=== PATIENT | female | born 1985 | race Caucasian/White ===

== ENCOUNTER 2019-09-19 12:35 | Emergency (ER) | payer MEDICAID, SELFPAY ==
--- NOTE | 2019-09-19 12:51 | XR_ITS ---
PROCEDURE: XR ANKLE RT MIN 3V CLINICAL INDICATION: pain Posttraumatic pain and swelling COMPARISON: No exams were available for comparison FINDINGS: Soft tissue swelling is present at the lateral malleolar region. No acute fracture or dislocation is evident. Ankle mortise is well preserved. IMPRESSION: Soft tissue swelling laterally otherwise negative Dictated by: Pool Galvez MD 09/19/2019 14:21 Electronically signed by Pool Galvez MD in [place] 09/19/2019 14:21
--- NOTE | 2019-09-19 12:56 | PC.NURSE ---
Pt to rad.
[2019-09-19 13:00] VITALS: BP 126/83; PULSE 93; RESP 16; TEMP 36.9; O2SAT 100; BMI 28.5
--- NOTE | 2019-09-19 13:06 | [facility].EDLOEX ---
ED Disposition Clinical Impression: Ankle sprain and strain Disposition: Home, Self-Care Condition on Discharge: Good Instructions: DI for Ankle Sprain Additional Instructions: Remain touchdown weightbearing only on the right lower extremity until follow-up with orthopedic surgery. Referrals: Veronica Valentin MD [Physician] - 3 days - Critical Care Critical Care Time: No Attestation: On 09/19/19, the high probability of a clinically significant, sudden or life threatening deterioration of the following system(s) required my full and direct attention, intervention and personal management. The time I documented below is in addition to time spent performing reported procedures but includes the following listed in this critical care notation. Medical Decision Making - Medical Records Medical records reviewed: Yes: I reviewed the patient's medical records. - Jono Inquiry Pt receiving controlled substance: No Vital Signs: 09/19/19 13:00 Temperature 98.5 F Temperature Source Oral Pulse Rate [Right Radial] 93 H Respiratory Rate 16 Blood Pressure [Right Arm] 126/83 Blood Pressure Mean [Right Arm] 97 Blood Pressure Source [Right Arm] Automatic Cuff Blood Pressure Position [Right Arm] Sitting 02 Sat by Pulse Oximetry 100 Oxygen Delivery Method Room Air Orders (Tests/Meds): ORDERS Category Date Time Status XR ankle RT min 3V Stat Exams 09/19/19 12:51 Taken - Radiology Data #1 Image(s): Ankle Image Reviewed: Yes I reviewed the patient's radiology image Preliminary Findings: No Fracture Seen No fracture or dislocation. Medical Decision Narrative: Patient likely with ankle sprain. X-ray shows no fracture or dislocation. I discussed these images and case with Dr. Delacruz who will follow-up in clinic. She recommended boot, crutches which has been given. I discussed RICE. Of note, 1 of the views, the lateral view, looks like there is potentially some subluxation of the foot anteriorly, however this is an oblique view an Dr. Delacruz, said we could proceed as planned with immobilization, crutches and follow-up in clinic for weightbearing views. Lower Extremity Injury HPI - General Stated Complaint: ao wisted R ankle Time Seen by Provider: 09/19/19 13:06 Source of Information: Patient Limitations: No Limitations - History of Present Illness HPI Narrative: This is a 34-year-old female who presents to the emergency department for evaluation of right ankle pain. She states that she twisted her ankle yesterday morning and has been hobbling ever since. She states that the pain is worse with ambulation and movement. She has not tried any medication. Pain is global around the ankle. - Related Data Home Medications Medication Instructions Recorded Confirmed No Known Home Medications 10/15/18 09/19/19 Allergies Allergy/AdvReac Type Severity Reaction Status Date / Time No Known Allergies Allergy Unverified 04/15/17 14:11 [facility] History - Hepatitis A Screen Attestation statement:: This patient has been screened for Hepatitis A risk factors. I have reviewed the patient's past medical history: Yes ROS Obtained: Yes All systems reviewed & no additional complaints Physical Exam - General General appearance: alert, in no apparent distress - Head Head exam: atraumatic, normocephalic, normal inspection - Neck Neck exam: Present: normal inspection, trachea midline - Respiratory Respiratory exam: Absent: respiratory distress - Cardiovascular Cardiovascular exam: Present: regular rate - Expanded Lower Extremity Exam Right Ankle exam: Present: other (Ankle is swollen with tenderness along the medial and lateral malleolus. 2+ DP and PT pulses. Sensation grossly intact distally. 5/5 EHL and FHL. She does have some flexion and extension intact at the ankle but has limited range of motion secondary to pain) - Neurological Exam Neurological exam: Pre
--- NOTE | 2019-09-19 14:04 | PC.NURSE ---
Dr Haider speaking with Dr Valentin.
[2019-09-19 15:00] VITALS: BP 126/83; PULSE 93; RESP 16; TEMP 36.9; O2SAT 100
== END 2019-09-19 15:00 | disposition home or self-care (01) ==
PROVIDERS: Emergency Provider Emergency Medicine; PCP Pediatrics
DX: S93.401A Sprain of unspecified ligament of right ankle, initial encounter (principal); X50.1XXA Overexertion from prolonged static or awkward postures, initial encounter; Y92.019 Unspecified place in single-family (private) house as the place of occurrence of the external cause
CPT/HCPCS: 29515; 73610; 99283

== ENCOUNTER 2024-06-30 12:34 | Inpatient (IN) | payer MEDICAID, SELFPAY ==
[2024-06-30] VITALS (12 sets, daily range): BP systolic 114–166; BP diastolic 67–103; PULSE 74–115; RESP 18; TEMP 36.4–39.3; O2SAT 96–99; BMI 52.5; BMI 50.1
--- NOTE | 2024-06-30 13:03 | ED_ITS ---
<Statement entered by Tessa Casas DO - 06/30/24 23:40> I was consulted by the MORAIMA, and we discussed the complexity of the problems being addressed. I approved the treatment and management plan for this patient's care in the emergency department, thus performing a substantive portion of the medical decision making. Tessa Casas DO Discharge Plan Disposition Patient Disposition: Admitted Condition: Good Clinical Impressions Clinical Impression: Sepsis without septic shock, Abscess of female pelvis Discharge ED Provider: Heladio Albert General Adult HPI <GILBERT Willard - Last Filed: 06/30/24 22:00> General Chief complaint: Abdominal Pain Stated complaint: lower abd pain Time Seen by Provider: 06/30/24 13:03 Mode of Arrival: Ambulatory Source of Information: Patient Description of Symptoms (Recalled from ER Triage Doc. by RN): Pt presents with c/o left sided abdominal pain. Pt states she has had vomiting and diarrhea. Pt states she has had a decreased appeite. History of Present Illness HPI narrative: Patient reports a week of bilateral lower quadrant abdominal pain over the past week. She reports vomiting and diarrhea along with nausea but denies chest pain shortness of breath fever chills hemoptysis hematochezia melena nausea vomiting diarrhea. Pain does not radiate. She is able to have bowel movements and passed flatus. Related Data Home Medications ?Medication ?Instructions ?Recorded ?Confirmed No Known Home Medications 10/15/18 06/30/24 Allergies Allergy/AdvReac Type Severity Reaction Status Date / Time No Known Allergies Allergy Verified 03/15/24 14:46 PFSH <GILBERT Willard - Last Filed: 06/30/24 22:00> [facility] Disclaimer: The information contained in this section may have been updated after the patient was seen, as this information can be updated by other users. Medical History (Updated 06/30/24 @ 20:14 by Candida Johnston DO) Hypokalemia No significant past medical history No significant past medical history Family History (Updated 06/30/24 @ 18:52 by Whitney Hull, TIEN) Other No significant family history Social History (Updated 06/30/24 @ 18:52 by Whitney Hull, TIEN) Smoking Status: Never smoker alcohol intake: never current occupational status: other Travel in the last 8 weeks: None Have you lived/traveled outside [place] in past 30 days?: No Contact w/someone who lives/traveled outside US past 30 days?: No Exposure to someone with infectious disease in past 14 days?: No Do you have a fever (greater than 100.4 F or 38 C)?: No Have you tested positive for COVID-19: No Exposed to someone with COVID-19 in past 14 days?: No Do you have a sore throat?: No Do you have a cough?: No Do you have any weakness?: No Are you experiencing any nausea/vomitting?: No Do you have any diarrhea?: No Are you experiencing any unusual bleeding?: No Do you have any muscle aches/pain?: No Do you have any abdominal pain?: Yes Are you experiencing loss of taste or smell?: No Other Medical History Have you received the Flu Vaccine for this season: No Have you received the Pneumonia Vaccine: No <GILBERT Willard - Last Filed: 06/30/24 22:00> ROS Obtained: Yes Systems reviewed as appropriate & no additional complaints except as documented Physical Exam <GILBERT Willard - Last Filed: 06/30/24 22:00> General General appearance: alert and in no apparent distress Respiratory Respiratory exam: Present normal lung sounds bilaterally Cardiovascular Cardiovascular exam: Present tachycardia Neurological Exam Neurological exam: Present alert and oriented X3 Medical Decision Making <GILBERT Willard - Last Filed: 06/30/24 22:00> Medical Records Medical records reviewed: Yes I reviewed the patient's medical records. Screening: Per USPSTF and CDC recommendations, given the prevalence of disease in our region, it is our hospital?s policy to screen for HIV and viral Hepatitis for all patients aged 18 and over and those with ongoing risk factors. Jono Inquiry Pt receiving controlled substance: No Vital Signs: 06/30/24 12:53 06/30/24 14:18 06/30/24 14:31 Temperature 98 F Temperature Source Oral Pulse Rate 115 H 109 H Pulse Rate [Right] 100 H Respiratory Rate 18 Blood Pressure 134/81 160/103 H Blood Pressure [Right Arm] 166/90 H Blood Pressure Mean [Right Arm] 115 Blood Pressure Source [Right Arm] Automatic Cuff Blood Pressure Position [Right Arm] Sitting 02 Sat by Pulse Oximetry 99 98 97 Oxygen Delivery Method Room Air Room Air Room Air 06/30/24 15:01 06/30/24 16:00 06/30/24 16:31 Temperature Temperature Source Pulse Rate 109 H 92 H 89 Pulse Rate [Right] Respiratory Rate Blood Pressure 128/88 127/81 137/69 Blood Pressure [Right Arm] Blood Pressure Mean [Right Arm] Blood Pressure Source [Right Arm] Blood Pressure Position [Right Arm] 02 Sat by Pulse Oximetry 98 98 96 Oxygen Delivery Method Room Air Room Air Room Air 06/30/24 17:01 06/30/24 17:30 06/30/24 18:01 Temperature Temperature Source Pulse Rate 92 H 79 74 Pulse Rate [Right] Respiratory Rate Blood Pressure 124/79 114/74 121/82 Blood Pressure [Right Arm] Blood Pressure Mean [Right Arm] Blood Pressure Source [Right Arm] Blood Pressure Position [Right Arm] 02 Sat by Pulse Oximetry 98 96 99 Oxygen Delivery Method Room Air Room Air Room Air 06/30/24 18:33 06/30/24 18:37 Temperature 97.6 F 98 F Temperature Source Oral Pulse Rate 74 Pulse Rate [Right] 85 Respiratory Rate 18 18 Blood Pressure 121/82 Blood Pressure [Right Arm] 137/67 Blood Pressure Mean [Right Arm] 90 Blood Pressure Source [Right Arm] Automatic Cuff Blood Pressure Position [Right Arm] Supine 02 Sat by Pulse Oximetry 98 Oxygen Delivery Method Room Air Room Air Lab Data Lab results reviewed: Yes I reviewed the patient's lab results. Lab Results 06/30/24 13:05: Urine Color Emmons, Urine Appearance Sl cloudy, Urine pH 6.0, Ur Specific [place] 1.025, Urine Protein 2+ A, Urine Glucose (UA) Negative, Urine Ketones Trace, Urine Blood 3+ A, Urine Nitrate Negative, Urine Bilirubin 1+ A, Urine Urobilinogen 1.0, Ur Leukocyte Esterase 2+ A, Urine RBC Tntc, Urine WBC 10-20, Ur Squamous Epith Cells Occasional, Urine Bacteria Trace, Urine HCG, Qual Negative 06/30/24 13:35: WBC 20.7 H*, RBC 4.55, Hgb 11.7 L, Hct 36.4 L, MCV 80.0 L, MCH 25.7 L, MCHC 32.1, RDW 15.4, Plt Count 705 H, MPV 10.4, Neut % (Auto) 78.5, Lymph % (Auto) 11.4, [place] % (Auto) 7.9, Eos % (Auto) 0.1, Baso % (Auto) 0.5, N eut # (Auto) 16.2 H, Lymph # (Auto) 2.4, [place] # (Auto) 1.6 H, Eos # (Auto) 0.0, Baso # (Auto) 0.1, Total Counted 100, Neutrophils % (Manual) 79 H, Lymphocytes % (Manual) 15, Monocytes % (Manual) 6, Platelet Estimate Moderate increase, RBC Morphology Normal, Sodium 137, Potassium 3.2 L, Chloride 97 L, Carbon Dioxide 30, Anion Gap 13.2, BUN 4 L, Creatinine 0.80, Estimated Creat Clear 69, Estimated GFR 81, Est GFR ( Amer) 98, Glucose 139 H, Calcium 8.8, Total Bilirubin 0.4, AST 30, ALT 29, Alkaline Phosphatase 188 H, Total Protein 8.5 H, Albumin 4.1, Globulin 4.4 H, Albumin/Globulin Ratio 0.9 L, Lipase 30, P rocalcitonin 3.77 H 06/30/24 14:10: Lactate 1.1 06/30/24 13:35 06/30/24 13:35 Orders (Tests/Meds): ED MEDICATIONS Generic Name Dose Route Start Last Admin Trade Name Freq PRN Reason Stop Dose Admin Acetaminophen 650 mg 06/30/24 20:03 Acetaminophen 325mg Tab PO 07/30/24 20:02 Q4HP PRN Fever or Mild Pain (1-3) Doxycycline Hyclate 100 mg 06/30/24 20:15 06/30/24 20:47 Doxycycline Hycl 100 Mg Tablet PO 07/10/24 20:14 100 mg Q12H ANA Administration Hydromorphone HCl 2 mg 06/30/24 20:03 Hydromorphone 2mg/Ml Syringe IV 07/30/24 20:02 Q4HP PRN Severe Pain (7-10) Lactated Ringer's 1,000 mls @ 50 mls/hr 06/30/24 20:15 06/30/24 21:25 Lactated Ringer's 1000 Ml Bag IV 07/30/24 20:14 Not Given .Q20H ANA Ceftriaxone Sodium 1 gm/ 50 mls @ 100 mls/hr 06/30/24 20:15 06/30/24 20:48 Sodium Chloride IV 07/10/24 20:14 100 mls/hr Q24H ANA Administration Ketorolac Tromethamine 30 mg 06/30/24 20:03 Ketorolac 30mg/Ml Vial IV 07/05/24 20:02 Q6HP PRN Moderate Pain (4-6) Metronidazole 500 mg 06/30/24 20:15 06/30/24 20:48 Metronidazole 500 Mg Tablet PO 07/10/24 20:14 500 mg Q12H ANA Administration Ondansetron HCl 4 mg 06/30/24 20:03 Ondansetron 4mg/2ml Vial IV 07/30/24 20:02 Q8HP PRN Nausea Potassium Chloride 40 meq 06/30/24 20:15 06/30/24 20:47 Potassium Chloride 20meq Tab PO 07/02/24 09:01 40 meq DAILY ANA Administration Promethazine HCl 25 mg 06/30/24 20:03 Promethazine Hcl 25mg/Ml 1ml Vial IV 07/30/24 20:02 Q6HP PRN Nausea And Vomiting Sodium Chloride 10 ml 06/30/24 20:03 Sodium Chloride 0.9% 10ml Flush Syringe IV 07/30/24 20:02 NEEDED PRN Maintain IV Site Sodium Chloride 25 ml 06/30/24 20:03 Sodium Chloride 0.9% 25ml Bag IV 07/30/24 20:02 NEEDED PRN for Use with IV Promethazine Discontinued Medications Generic Name Dose Route Start Last Admin Trade Name Freq PRN Reason Stop Dose Admin Acetaminophen 1,000 mg 06/30/24 13:06 06/30/24 13:33 Acetaminophen 1,000mg/100ml Vial IV 06/30/24 13:07 1,000 mg ONCE ONE Administration Hydromorphone HCl 0.5 mg 06/30/24 14:43 06/30/24 16:37 Hydromorphone 2mg/Ml Syringe IV 06/30/24 14:44 0.5 mg ONCE ONE Administration Sodium Chloride 1,000 mls @ 999 mls/hr 06/30/24 13:06 06/30/24 13:33 Sod Chlor 0.9% 1000ml Bag IV 06/30/24 14:06 999 mls/hr .Q1H1M ONE Administration Sodium Chloride 1,370 mls @ 685 mls/hr 06/30/24 13:59 06/30/24 14:06 Sod Chlor 0.9% 1000ml Bag 30 ml/kg infuse over 2 hr (1370 ml) 06/30/24 15:58 685 mls/hr IV Administration .Q2H ONE Piperacillin Sod/Tazobactam 50 mls @ 100 mls/hr 06/30/24 14:09 06/30/24 15:39 Sod 3.375 gm/ Sodium Chloride IV 06/30/24 14:38 100 mls/hr ONCE ONE Administration Lactated Ringer's 1,000 mls @ 50 mls/hr 06/30/24 18:15 06/30/24 18:45 Lactated Ringer's 1000 Ml Bag IV 07/30/24 18:14 50 mls/hr .Q20H ANA Administration Iopamidol 75 ml 06/30/24 13:59 06/30/24 14:01 Iopamidol-370 (76%);100ml Bottle IV 06/30/24 14:00 75 ml ONCE ONE Administration Ketorolac Tromethamine 15 mg 06/30/24 13:06 06/30/24 13:34 Ketorolac 30mg/Ml Vial IV 06/30/24 13:07 15 mg ONCE ONE Administration Ondansetron HCl 4 mg 06/30/24 13:06 06/30/24 13:34 Ondansetron 4mg/2ml Vial IV 06/30/24 13:07 4 mg ONCE ONE Administration Sodium Chloride 10 ml 06/30/24 13:59 06/30/24 14:01 Sodium Chloride 0.9% 10ml Syr (Rad Only) IV 06/30/24 14:00 10 ml ONCE ONE Administration ORDERS Category Date Time Status CT abdomen pelvis w con Stat Cat Scan 06/30/24 13:06 Completed US transvaginal Stat Exams 06/30/24 14:43 Completed CBC w/Auto Diff [Complete Blood Count Auto Diff] Stat Lab 06/30/24 13:35 Completed CMP [Comprehensive Metabolic Panel] Stat Lab 06/30/24 13:35 Completed Lactic Acid Stat Lab 06/30/24 14:10 Completed Lipase Stat Lab 06/30/24 13:35 Completed Procalcitonin Stat Lab 06/30/24 13:35 Completed UA [Urinalysis and Microscopic] Stat Lab 06/30/24 13:05 Completed Urine , HCG Qual. Stat Lab 06/30/24 13:05 Completed Blood Culture Stat Micro 06/30/24 14:11 Received Urine Culture Stat Micro 06/30/24 13:05 Received Tissue Perfus/Sepsis Re-Eval Sepsis Re-Evaluation Performed: Yes Date Performed: 06/30/24 Time Performed: 14:10 Medical Decision Narrative: In summary patient is a 39-year-old female who presents to the emergency department for evaluation of nominal pain. Patient is initially normotensive 166/90 pulse 100 with sinus tachycardia the bedside monitor breathing 18 times a minute satting at 99% room air upon arrival, afebrile at 98. Zickel exam is remarkable for moderate abdominal tenderness in the bilateral lower quadrants without rebound or guarding or rigidity or focal tenderness. Bowel sounds hyperactive.. Differential diagnosis includes gastroenteritis versus colitis versus urinary tract infection versus appendicitis versus diverticulitis etc. Initial workup will be conducted with hematologic labs CT scan abdomen pelvis. Initial interventions include crystalloid bolus Toradol Tylenol Zofran. Initial workup reviewed by me shows her white count is 20.7 hemoglobin hematocrit 11.7 and 36.4 respectively with an absolute neutrophil count of 16.2 potassium is 3.2 chloride 97 BUN of 4 creatinine of 0.80 glucose 139, alk phos 188 and a procalcitonin of 3.77 and a lipase of 30. Urinalysis showed 2+ protein 3+ blood nitrite negative 2+ leukocyte Estrace scopic exam showed too numerous to count red cells 10-20 white cells occasional squamous epithelial cells and trace bacteria beta-hCG was negative. My informal interpretation of her CT scan abdomen pelvis showed stranding and inflammation around and a right adnexal solid and cystic mass additionally showed a malpositioned IUD without free air or abscess noted with some free fluid in the pelvis. At that point I ordered a sepsis bolus ordered blood cultures then started the patient on Zosyn. I had interactive discussion with IRON WORKER APPRENTICE on-call who requested a transvaginal ultrasound to rule out ovarian torsion. After the transvaginal ultrasound was performed WIRELESS NETWORK ENGINEER was recontacted and we discussed patient management. There did appear to be flow to the ovary on the right however tubo-ovarian abscess versus neoplasm remains in the differential. They felt that the complexity of the patient and services available require transfer to a higher level of care. I then had an interactive discussion with Dr. Herrera of GynOnc at the [facility] about patient presentation RUGGIERO and patient management. Dr. Lelo Carmona has accepted the patient however the the [facility] and the plan is to waitlist her if we are comfortable and patient is stable when a bed becomes available. I recontacted Dr. Johnston of IRON WORKER APPRENTICE here who agreed to admission. Subsequently patient has been admitted for further evaluation and care pending transfer to the [facility]. Heladio Albert MD: I was consulted by the MORAIMA, and we discussed the complexity of the problems being addressed. I approved the treatment and management plan for this patient's care in the emergency department, thus performing a substantive portion of the medical decision making. I agree with initial workup and imaging patient has a right adnexal mass, leukocytosis has gotten sepsis bolus fluids and is undergoing appropriate transvaginal ultrasound to determine ultimate disposition which is pending at time of transfer of care to the oncoming physician, Dr. aCsas. <Heladio Albert MD - Last Filed: 06/30/24 15:08> Vital Signs: 06/30/24 12:53 06/30/24 14:18 06/30/24 14:31 Temperature 98 F Temperature Source Oral Pulse Rate 115 H 109 H Pulse Rate [Right] 100 H Respiratory Rate 18 Blood Pressure 134/81 160/103 H Blood Pressure [Right Arm] 166/90 H Blood Pressure Mean [Right Arm] 115 Blood Pressure Source [Right Arm] Automatic Cuff Blood Pressure Position [Right Arm] Sitting 02 Sat by Pulse Oximetry 99 98 97 Oxygen Delivery Method Room Air Room Air Room Air 06/30/24 15:01 06/30/24 16:00 06/30/24 16:31 Temperature Temperature Source Pulse Rate 109 H 92 H 89 Pulse Rate [Right] Respiratory Rate Blood Pressure 128/88 127/81 137/69 Blood Pressure [Right Arm] Blood Pressure Mean [Right Arm] Blood Pressure Source [Right Arm] Blood Pressure Position [Right Arm] 02 Sat by Pulse Oximetry 98 98 96 Oxygen Delivery Method Room Air Room Air Room Air 06/30/24 17:01 06/30/24 17:30 06/30/24 18:01 Temperature Temperature Source Pulse Rate 92 H 79 74 Pulse Rate [Right] Respiratory Rate Blood Pressure 124/79 114/74 121/82 Blood Pressure [Right Arm] Blood Pressure Mean [Right Arm] Blood Pressure Source [Right Arm] Blood Pressure Position [Right Arm] 02 Sat by Pulse Oximetry 98 96 99 Oxygen Delivery Method Room Air Room Air Room Air 06/30/24 18:33 06/30/24 18:37 Temperature 97.6 F 98 F Temperature Source Oral Pulse Rate 74 Pulse Rate [Right] 85 Respiratory Rate 18 18 Blood Pressure 121/82 Blood Pressure [Right Arm] 137/67 Blood Pressure Mean [Right Arm] 90 Blood Pressure Source [Right Arm] Automatic Cuff Blood Pressure Position [Right Arm] Supine 02 Sat by Pulse Oximetry 98 Oxygen Delivery Method Room Air Room Air Lab Data Lab Results 06/30/24 13:05: Urine Color [place], Urine Appearance Sl cloudy, Urine pH 6.0, Ur Specific [place] 1.025, Urine Protein 2+ A, Urine Glucose (UA) Negative, Urine Ketones Trace, Urine Blood 3+ A, Urine Nitrate Negative, Urine Bilirubin 1+ A, Urine Urobilinogen 1.0, Ur Leukocyte Esterase 2+ A, Urine RBC Tntc, Urine WBC 10-20, Ur Squamous Epith Cells Occasional, Urine Bacteria Trace, Urine HCG, Qual Negative 06/30/24 13:35: WBC 20.7 H*, RBC 4.55, Hgb 11.7 L, Hct 36.4 L, MCV 80.0 L, MCH 25.7 L, MCHC 32.1, RDW 15.4, Plt Count 705 H, MPV 10.4, Neut % (Auto) 78.5, Lymph % (Auto) 11.4, [place] % (Auto) 7.9, Eos % (Auto) 0.1, Baso % (Auto) 0.5, N eut # (Auto) 16.2 H, Lymph # (Auto) 2.4, [place] # (Auto) 1.6 H, Eos # (Auto) 0.0, Baso # (Auto) 0.1, Total Counted 100, Neutrophils % (Manual) 79 H, Lymphocytes % (Manual) 15, Monocytes % (Manual) 6, Platelet Estimate Moderate increase, RBC Morphology Normal, Sodium 137, Potassium 3.2 L, Chloride 97 L, Carbon Dioxide 30, Anion Gap 13.2, BUN 4 L, Creatinine 0.80, Estimated Creat Clear 69, Estimated GFR 81, Est GFR ( Amer) 98, Glucose 139 H, Calcium 8.8, Total Bilirubin 0.4, AST 30, ALT 29, Alkaline Phosphatase 188 H, Total Protein 8.5 H, Albumin 4.1, Globulin 4.4 H, Albumin/Globulin Ratio 0.9 L, Lipase 30, P rocalcitonin 3.77 H 06/30/24 14:10: Lactate 1.1 Orders (Tests/Meds): ED MEDICATIONS Generic Name Dose Route Start Last Admin Trade Name Freq PRN Reason Stop Dose Admin Acetaminophen 650 mg 06/30/24 20:03 Acetaminophen 325mg Tab PO 07/30/24 20:02 Q4HP PRN Fever or Mild Pain (1-3) Doxycycline Hyclate 100 mg 06/30/24 20:15 06/30/24 20:47 Doxycycline Hycl 100 Mg Tablet PO 07/10/24 20:14 100 mg Q12H ANA Administration Hydromorphone HCl 2 mg 06/30/24 20:03 Hydromorphone 2mg/Ml Syringe IV 07/30/24 20:02 Q4HP PRN Severe Pain (7-10) Lactated Ringer's 1,000 mls @ 50 mls/hr 06/30/24 20:15 06/30/24 21:25 Lactated Ringer's 1000 Ml Bag IV 07/30/24 20:14 Not Given .Q20H ANA Ceftriaxone Sodium 1 gm/ 50 mls @ 100 mls/hr 06/30/24 20:15 06/30/24 20:48 Sodium Chloride IV 07/10/24 20:14 100 mls/hr Q24H ANA Administration Ketorolac Tromethamine 30 mg 06/30/24 20:03 Ketorolac 30mg/Ml Vial IV 07/05/24 20:02 Q6HP PRN Moderate Pain (4-6) Metronidazole 500 mg 06/30/24 20:15 06/30/24 20:48 Metronidazole 500 Mg Tablet PO 07/10/24 20:14 500 mg Q12H ANA Administration Ondansetron HCl 4 mg 06/30/24 20:03 Ondansetron 4mg/2ml Vial IV 07/30/24 20:02 Q8HP PRN Nausea Potassium Chloride 40 meq 06/30/24 20:15 06/30/24 20:47 Potassium Chloride 20meq Tab PO 07/02/24 09:01 40 meq DAILY ANA Administration Promethazine HCl 25 mg 06/30/24 20:03 Promethazine Hcl 25mg/Ml 1ml Vial IV 07/30/24 20:02 Q6HP PRN Nausea And Vomiting Sodium Chloride 10 ml 06/30/24 20:03 Sodium Chloride 0.9% 10ml Flush Syringe IV 07/30/24 20:02 NEEDED PRN Maintain IV Site Sodium Chloride 25 ml 06/30/24 20:03 Sodium Chloride 0.9% 25ml Bag IV 07/30/24 20:02 NEEDED PRN for Use with IV Promethazine Discontinued Medications Generic Name Dose Route Start Last Admin Trade Name Freq PRN Reason Stop Dose Admin Acetaminophen 1,000 mg 06/30/24 13:06 06/30/24 13:33 Acetaminophen 1,000mg/100ml Vial IV 06/30/24 13:07 1,000 mg ONCE ONE Administration Hydromorphone HCl 0.5 mg 06/30/24 14:43 06/30/24 16:37 Hydromorphone 2mg/Ml Syringe IV 06/30/24 14:44 0.5 mg ONCE ONE Administration Sodium Chloride 1,000 mls @ 999 mls/hr 06/30/24 13:06 06/30/24 13:33 Sod Chlor 0.9% 1000ml Bag IV 06/30/24 14:06 999 mls/hr .Q1H1M ONE Administration Sodium Chloride 1,370 mls @ 685 mls/hr 06/30/24 13:59 06/30/24 14:06 Sod Chlor 0.9% 1000ml Bag 30 ml/kg infuse over 2 hr (1370 ml) 06/30/24 15:58 685 mls/hr IV Administration .Q2H ONE Piperacillin Sod/Tazobactam 50 mls @ 100 mls/hr 06/30/24 14:09 06/30/24 15:39 Sod 3.375 gm/ Sodium Chloride IV 06/30/24 14:38 100 mls/hr ONCE ONE Administration Lactated Ringer's 1,000 mls @ 50 mls/hr 06/30/24 18:15 06/30/24 18:45 Lactated Ringer's 1000 Ml Bag IV 07/30/24 18:14 50 mls/hr .Q20H ANA Administration Iopamidol 75 ml 06/30/24 13:59 06/30/24 14:01 Iopamidol-370 (76%);100ml Bottle IV 06/30/24 14:00 75 ml ONCE ONE Administration Ketorolac Tromethamine 15 mg 06/30/24 13:06 06/30/24 13:34 Ketorolac 30mg/Ml Vial IV 06/30/24 13:07 15 mg ONCE ONE Administration Ondansetron HCl 4 mg 06/30/24 13:06 06/30/24 13:34 Ondansetron 4mg/2ml Vial IV 06/30/24 13:07 4 mg ONCE ONE Administration Sodium Chloride 10 ml 06/30/24 13:59 06/30/24 14:01 Sodium Chloride 0.9% 10ml Syr (Rad Only) IV 06/30/24 14:00 10 ml ONCE ONE Administration ORDERS Category Date Time Status CT abdomen pelvis w con Stat Cat Scan 06/30/24 13:06 Completed US transvaginal Stat Exams 06/30/24 14:43 Completed CBC w/Auto Diff [Complete Blood Count Auto Diff] Stat Lab 06/30/24 13:35 Completed CMP [Comprehensive Metabolic Panel] Stat Lab 06/30/24 13:35 Completed Lactic Acid Stat Lab 06/30/24 14:10 Completed Lipase Stat Lab 06/30/24 13:35 Completed Procalcitonin Stat Lab 06/30/24 13:35 Completed UA [Urinalysis and Microscopic] Stat Lab 06/30/24 13:05 Completed Urine , HCG Qual. Stat Lab 06/30/24 13:05 Completed Blood Culture Stat Micro 06/30/24 14:11 Received Urine Culture Stat Micro 06/30/24 13:05 Received Medical Decision Narrative: Heladio Albert MD: I was consulted by the MORAIMA, and we discussed the complexity of the problems being addressed. I approved the treatment and management plan for this patient's care in the emergency department, thus performing a substantive portion of the medical decision making. I agree with initial workup and imaging patient has a right adnexal mass, leukocytosis has gotten sepsis bolus fluids and is undergoing appropriate transvaginal ultrasound to determine ultimate disposition which is pending at time of transfer of care to the oncoming physician, Dr. Casas. Critical Care <Heladio Albert MD - Last Filed: 06/30/24 15:08> Critical Care Time Critical Care Time: No
--- NOTE | 2024-06-30 13:06 | CT_ITS ---
FINAL REPORT TECHNIQUE: After the administration of intravenous contrast, axial images were obtained through the abdomen and pelvis by computed tomography. This study was performed with technique to keep radiation doses as low as reasonably achievable, (ALARA). Individualized dose reduction techniques using automated exposure control or adjustment of the MA and/or KV according to the patient's size were employed. CLINICAL HISTORY: Abdominal pain for a week lower abdomen FINDINGS: Abdomen: The lung bases are clear. The liver is normal in size and attenuation. The spleen and gallbladder are unremarkable. The adrenals are normal. The pancreas is unremarkable. The kidneys enhance appropriately. The aorta is normal in caliber.. Pelvis: The appendix is not identified. There is mild retroperitoneal adenopathy throughout the peritoneum. Largest precaval lymph node measures 11 mm and is seen on image 60 below the liver of the renal vasculature. There is a complex cystic/solid right adnexal mass, likely of ovarian origin measuring 7.7 x 6.7 x 6.8 cm. There is significant surrounding stranding which represent neoplasm with surrounding tumor infiltration or tubo-ovarian abscess with surrounding inflammation or less likely, ovarian torsion. Findings likely account for mild retroperitoneal adenopathy. The left ovary is normal. There is a malpositioned IUD within the lower uterine segment and cervical canal. There is trace pelvic free fluid. Mild wall thickening is seen of the adjacent sigmoid colon likely related to secondary inflammation. There are mildly enlarged right external iliac lymph nodes measuring up to 11 mm. IMPRESSION: 1. Right adnexal mass measuring up to 7.7 cm with surrounding inflammation/infiltration. Differential diagnosis includes neoplasm, tubo-ovarian abscess or torsion. Recommend PASSENGER CAR UPHOLSTERER APPRENTICE consultation. Mild retroperitoneal and right inguinal adenopathy which may be reactive or neoplastic. Reviewed, Interpreted and Dictated by Alon Okeefe MD Transcribed by Zoraida Thomas Authenticated and [facility]
[2024-06-30 13:11] LABS: Microscopic, Urine URINE MICROSCOPIC (MICROSCOPIC)
[2024-06-30] MEDS: 0.9 % SODIUM CHLORIDE 1000ML 1,000 ML 999 ML IV (13:33)
[2024-06-30] MEDS: ACETAMINOPHEN 1,000MG/100ML VIAL 1000 MG IV (13:33)
[2024-06-30] MEDS: KETOROLAC 30MG/ML VIAL 15 MG IV (13:34)
[2024-06-30] MEDS: ONDANSETRON 4MG/2ML VIAL 4 MG IV (13:34)
[2024-06-30 13:37] LABS: Urine Pregnancy, HCG Qual. Negative (Negative)
[2024-06-30 13:45] LABS: Appearance,Urine SL CLOUDY (Clear); Blood, Urine 3+ (Negative); Color,Urine ORANGE (Yellow); Glucose,Urine (UA) Negative (Negative); Ketones,Urine TRACE (Negative); Leukocyte Esterase,Urine 2+ (Negative); Nitrate,Urine Negative (Negative); Protein,Urine 2+ (Negative); Specific Gravity, Urine 1.025 (1.005-1.030)
[2024-06-30 13:46] LABS: Bilirubin,Urine 1+ (Negative)
[2024-06-30 13:53] LABS: Basophils # 0.1 K/mm3 (0-0.2); Basophils % 0.5 % (0.1-2.0); Eosinophils % 0.1 % (0.1-12.0); Hematocrit 36.4 % (37.0-47.0); Hemoglobin 11.7 g/dL (12.2-16.2); Lymphocytes # 2.4 K/mm3 (0.7-4.5); Lymphocytes % 11.4 % (10-50); Mean Corpuscular HGB Conc 32.1 g/dL (31.8-35.4); Mean Corpuscular Hemoglobin 25.7 pg (27.0-31.2); Mean Platelet Volume 10.4 fl (7.4-10.4); Monocytes # 1.6 K/mm3 (0.1-1.0); Monocytes % 7.9 % (1.7-9.3); Neutrophils # 16.2 K/mm3 (1.8-7.8); Neutrophils % 78.5 % (37.0-80.0); Platelet Count 705 K/mm3 (142-424); Red Blood Count 4.55 M/mm3 (4.20-5.40); Red Cell Distribution Width 15.4 % (11.5-17.5); White Blood Count 20.7 K/mm3 (4.8-10.8)
[2024-06-30 13:57] LABS: MANUAL DIFFERENTIAL MANUAL DIFFERENTIAL (MANUAL DIFF)
[2024-06-30] MEDS: IOPAMIDOL-370 (76%);100ML BOTTLE 75 ML IV (14:01)
[2024-06-30] MEDS: SODIUM CHLORIDE 0.9% 10ML SYR (RAD ONLY) 10 ML IV (14:01)
[2024-06-30 14:04] LABS: RBC,Urine TNTC #/hpf (0-3); Squamous Epithelial Cell,Urine Occasional #/hpf (0-5)
[2024-06-30 14:05] LABS: Bacteria,Urine Trace /lpf
[2024-06-30] MEDS: 0.9 % SODIUM CHLORIDE 1000ML 1,370 ML 685 ML IV (14:06)
[2024-06-30 14:09] LABS: Alanine Aminotransferase 29 U/L (12-78); Albumin Level 4.1 g/dl (3.5-5.0); Albumin/Globulin Ratio 0.9 (1.1-1.8); Alkaline Phosphatase 188 U/L (38-126); Anion Gap 13.2 mEq/L (5-15); Aspartate Amino Transferase 30 U/L (14-36); Bilirubin,Total 0.4 mg/dl (0.2-1.3); Blood Urea Nitrogen 4 mg/dl (7-17); Calcium 8.8 mg/dl (8.4-10.2); Carbon Dioxide 30 mmol/L (22.0-30.0); Chloride 97 mmol/L (98-107); Creatinine Clearance Estimated 69 mL/min (50-200); Estimated Glomerular Filt Rate 81 ml/min (>60); GFR (African American) 98 ML/MIN (>60); Globulin 4.4 g/dL (1.3-3.2); Glucose 139 mg/dl (74-100); Lipase 30 U/L (23-300); Potassium 3.2 mmoL/L (3.5-5.1); Sodium 137 mmol/L (136-145); Total Protein,Serum 8.5 g/dl (6.3-8.2)
[2024-06-30 14:15] LABS: Lymphocytes % 15 % (10-50); Monocytes % 6 % (2-9); Neutrophils % 79 % (42-76); Platelet Estimate Moderate Increase; RBC Morphology Normal; Total Cells Counted 100
--- NOTE | 2024-06-30 14:23 | PC.NURSE ---
I COLLECTED BOTH SETS OF BLOOD CULTURES AND BLUE BRACELET PLACED ON PT LEFT WRIST AT THIS TIME
[2024-06-30 14:26] LABS: Procalcitonin 3.77 ng/mL (0.0-2.0)
[2024-06-30 14:34] LABS: Lactic Acid 1.1 mmol/L (0.7-2.1)
--- NOTE | 2024-06-30 14:43 | US_ITS ---
PROCEDURE: US TRANSVAGINAL CLINICAL INDICATION: Complex right adnexal mass rule out torsion COMPARISON: CT CT ABDOMEN PELVIS W CON from 06/30/2024 FINDINGS: Transvaginal sonographic images of the pelvis were obtained. UTERUS: 8.7 cm x 6.8 cmx 4.2cm anteverted with a combined endometrial thickness of 11.4mm. There appears to be a complex nabothian cyst in the cervix that measures 1.2 cm in size. There is an IUD that appears to be in the upper cervix. LEFT OVARY: Not visualized. RIGHT OVARY: 1.7 cmx 2.4cmx1.6 cm with a volume of 3.3ml. There are several small follicles in the right ovary. Adjacent and inferior to the right ovary there is a complex mass that has hyperechoic areas thought to be inflammatory. This mass measures 7.7 cm x 7.3 cm x 6.2 cm. It is not clear whether this mass is part of the right ovary or adjacent to it. There is a 2nd complex mass seen in the cul-de-sac without peristalsis. It measures 2.7 cm in size. It appears to be adjacent to the primary complex mass. Doppler flow to right ovary is seen. There is moderate in the cul-de-sac. Likely inflammatory. IMPRESSION: 1. Anteverted uterus, bulky in size. The endometrium appears normal and measures 11.4 mm. 2. There is an IUD out of position in the upper cervix. 3. The left ovary is not visualized. 4. The right ovary is seen and appears normal. Adjacent to the right ovary there is a complex mass measuring up to 7.7 cm in size. Likely tubo-ovarian abscess but cannot rule out a neoplastic process. There is a 2nd smaller complex mass in the cul-de-sac adjacent to the primary mass that measures 2.7 cm in size. 5. Doppler flow is seen to the right ovary. 6. There is a moderate amount of clear fluid in the cul-de-sac likely inflammatory. 7. The findings were discussed with Dr. Austin in the ER. Dictated by: Ruben Carrasco MD 06/30/2024 16:25 Ruben Carrasco MD in OV 06/30/2024 16:25
--- NOTE | 2024-06-30 15:16 | PC.NURSE ---
Pt to CT
--- NOTE | 2024-06-30 15:34 | PC.NURSE ---
1411 Gamal HUNT notified of WBC of 20. A Grabiel [facility] currently drawing blood cultures on patient.
[2024-06-30] MEDS: PIPERCILLIN/TAZO 3.375 GM in 0.9 % SODIUM CHLORIDE 50 ML IV (15:39)
--- NOTE | 2024-06-30 16:06 | PC.NURSE ---
Roman Austin paged
--- NOTE | 2024-06-30 16:07 | PC.NURSE ---
Joe HUNT speaking with at this time.
--- NOTE | 2024-06-30 16:09 | PC.NURSE ---
Dr. Susie vaughan. Jonatan would like us to reach out to and .
--- NOTE | 2024-06-30 16:10 | PC.NURSE ---
Keyla requested radiology power share and make a disk.
[2024-06-30] MEDS: HYDROMORPHONE 2MG/ML SYRINGE 0.5 MG IV (16:37)
--- NOTE | 2024-06-30 16:37 | PC.NURSE ---
CALLING [facility] FOR FOR OBGYN SERVICES PER SERGIO(GILBERT) DUE TO PT HAVING RT COMPLEX MASS AND POSSIBLE PELVIC ABCESS, [facility] STATES THEY WILL CALL BACK ONCE PROVIDER IS ON THE LINE TO SPEAK WITH PA
--- NOTE | 2024-06-30 17:25 | PC.NURSE ---
GILBERT HILL SPEAKING WITH FRANKO AT
--- NOTE | 2024-06-30 17:52 | PC.NURSE ---
I notified HS that the pt will need a bed for admission to med/surg per
--- NOTE | 2024-06-30 18:08 | PC.NURSE ---
report called to rohit on second floor
--- NOTE | 2024-06-30 18:33 | PC.NURSE ---
arrived by w/c from ED
[2024-06-30] MEDS: LACTATED RINGERS 1000ML 1,000 ML 50 ML IV (18:45)
--- NOTE | 2024-06-30 19:54 | EXP.HP ---
History of Present Illness *Admission Date: 06/30/24 *Reason for visit:: Abdominal pain, nausea, vomiting, diarrhea *History of present illness: Ms Kathy Chandler is a 39 yo [id number] who presented to [facility] ED with complaint of abdominal pain, nausea, vomiting and diarrhea. She states about 1 week ago she started to have lower abdominal pain. She didn't think much of it because she was due to start her period. She has an IUD in place that was inserted about 9 years ago. She has always had regular, monthly periods with IUD. She started her period 06/25/24 but her abdominal pain did not improve. Pain is more tolerable during the day and gets worse at night. Pain has progressively increased over the past several days. She reports associated nausea, vomiting and diarrhea. She states she normally has daily BM and sometimes twice daily. However, when the pain started she became constipated. The constipation then turned to diarrhea. She reports about two BMs but her stool is liquid. She admits to chills at night. Her period stopped last night but returned again today more brown in color. 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 She hasn't had a pap smear since then. She admits she has not been sexually active in about 1 year. She denies past medical history. She quit smoking 3 months ago. History of x 3. [facility] Disclaimer: The information contained in this section may have been updated after the patient was seen, as this information can be updated by other users. Medical History (Updated 06/30/24 @ 20:14 by Candida Johnston DO) Hypokalemia No significant past medical history No significant past medical history Family History (Updated 06/30/24 @ 18:52 by Whitney Hull RN) Other No significant family history Social History (Updated 06/30/24 @ 18:52 by Whitney Hull RN) Smoking Status: Never smoker alcohol intake: never current occupational status: other Travel in the last 8 weeks: None Have you lived/traveled outside US in past 30 days?: No Contact w/someone who lives/traveled outside US past 30 days?: No Exposure to someone with infectious disease in past 14 days?: No Do you have a fever (greater than 100.4 F or 38 C)?: No Have you tested positive for COVID-19: No Exposed to someone with COVID-19 in past 14 days?: No Do you have a sore throat?: No Do you have a cough?: No Do you have any weakness?: No Are you experiencing any nausea/vomitting?: No Do you have any diarrhea?: No Are you experiencing any unusual bleeding?: No Do you have any muscle aches/pain?: No Do you have any abdominal pain?: Yes Are you experiencing loss of taste or smell?: No Other Medical History Have you received the Flu Vaccine for this season: No Have you received the Pneumonia Vaccine: No Review of Systems Review of Systems Review of systems:: pertinent systems reviewed and negative unless documented below Constitutional Constitutional: Reports chills (in the evenings) *Gastrointestinal Gastrointestinal: Reports abdominal pain, Reports loose stools, Reports nausea and Reports vomiting *Genitourinary Genitourinary: Reports pelvic pain Meds Home Medications and Allergies Home Medications ?Medication ?Instructions ?Recorded ?Confirmed ?Type No Known Home Medications 10/15/18 06/30/24 History New Prescriptions to Start Prescriptions: Allergies Allergy/AdvReac Type Severity Reaction Status Date / Time No Known Allergies Allergy Verified 03/15/24 14:46 Exam Data for Last 24 hours Vital signs and Labs for Last 24 Hours: Temp Pulse Resp BP Pulse Ox O2 Del Method 98 F 74 18 121/82 98 Room Air 06/30/24 18:37 06/30/24 18:37 06/30/24 18:37 06/30/24 18:37 06/30/24 18:33 06/30/24 18:37 Laboratory Results - last 24 hr 06/30/24 13:05: Urine Color [place], Urine Appearance Sl cloudy, Urine pH 6.0, Ur Specific [place] 1.025, Urine Protein 2+ A, Urine Glucose (UA) Negative, Urine Ketones Trace, Urine Blood 3+ A, Urine Nitrate Negative, Urine Bilirubin 1+ A, Urine Urobilinogen 1.0, Ur Leukocyte Esterase 2+ A, Urine RBC Tntc, Urine WBC 10-20, Ur Squamous Epith Cells Occasional, Urine Bacteria Trace, Urine HCG, Qual Negative 06/30/24 13:35: WBC 20.7 H*, RBC 4.55, Hgb 11.7 L, Hct 36.4 L, MCV 80.0 L, MCH 25.7 L, MCHC 32.1, RDW 15.4, Plt Count 705 H, MPV 10.4, Neut % (Auto) 78.5, Lymph % (Auto) 11.4, [place] % (Auto) 7.9, Eos % (Auto) 0.1, Baso % (Auto) 0.5, Neut # (Auto) 16.2 H, Lymph # (Auto) 2.4, [place] # (Auto) 1.6 H, Eos # (Auto) 0.0, Baso # (Auto) 0.1, Total Counted 100, Neutrophils % (Manual) 79 H, Lymphocytes % (Manual) 15, Monocytes % (Manual) 6, Platelet Estimate Moderate increase, RBC Morphology Normal, Sodium 137, Potassium 3.2 L, Chloride 97 L, Carbon Dioxide 30, Anion Gap 13.2, BUN 4 L, Creatinine 0.80, Estimated Creat Clear 69, Estimated GFR 81, Est GFR ( Amer) 98, Glucose 139 H, Calcium 8.8, Total Bilirubin 0.4, AST 30, ALT 29, Alkaline Phosphatase 188 H, Total Protein 8.5 H, Albumin 4.1, Globulin 4.4 H, Albumin/Globulin Ratio 0.9 L, Lipase 30, Procalcitonin 3.77 H 06/30/24 14:10: Lactate 1.1 I & O for Last 24 hours: Intake & Output 06/27/24 06/28/24 06/29/24 06/30/24 23:59 23:59 23:59 23:59 Weight 255 lb 1 oz Constitutional Constitutional: no acute distress and cooperative *Routine HEENT Exam Head: Present normocephalic and atraumatic Eye: Absent conjunctivae pink ENT: Present mucous membranes moist *Routine Neck Exam Neck: Present full ROM *Routine Respiratory Exam Respiratory: Present CTA bilaterally and normal respiratory effort *Routine Cardiovascular Exam Cardiovascular: Present RRR *Routine Abdominal Exam Abdominal: Present soft, normoactive bowel sounds, tenderness (mild RLQ tenderness to palpation and mild RLQ pain with LLQ palpation) and obese; Absent distended or guarding *Routine Rectal Exam Rectal:: deferred *Routine Genitalia Exam Genitalia:: normal female *Routine Extremities Exam Extremities: Present full ROM; Absent edema or calf tenderness *Routine Neurological Exam Neurological: Present alert, moving all extremities and normal speech Routine Psychiatric Exam Psychiatric: Present normal affect and cooperative Assessment and Plan *Assessment and plan (1) Sepsis without septic shock: Status: Acute Category: Medical Code(s): A41.9 - Sepsis, unspecified organism (2) Abscess of female pelvis: Status: Acute Category: Medical Code(s): N73.9 - Female pelvic inflammatory disease, unspecified (3) Hypokalemia: Status: Acute Category: Medical Code(s): E87.6 - Hypokalemia Plan Admit to med/surg Reviewed CT scan and pelvic ultrasound. Discussed findings with Kathy. All questions addressed and answered. Of note, IUD is in lower uterine segment. She has had this IUD in place for 9 years She received 1 dose of Zosyn while in the ED. Vaginal culture collected and sent Rocephin 1 gram IV q 24 hrs, Doxycycline 100mg PO q 12 hours and Metronidazole 500 mg PO q 12 hours ordered Blood cultures and urine cultures pending Klor-con 40 mEq PO daily ordered x 3 days SCDs for DVT prophylaxis IV fluids at 50 ml/hr. She received sepsis fluid resuscitation in the ED Regular diet as tolerated Pain medication ordered for mild, moderate and severe pain. She was comfortable during exam tonight. Zofran and promethazine ordered PRN Repeat CBC, CMP and procalcitonin in the AM Consider repeat CT scan in the next 48 hours
[2024-06-30] MEDS: POTASSIUM CHLORIDE 20MEQ TAB 40 MEQ PO (20:47)
[2024-06-30] MEDS: DOXYCYCLINE HYCL 100 MG TABLET PO (20:47)
[2024-06-30] MEDS: CEFTRIAXONE 1 GM 1 GM in 0.9 % SODIUM CHLORIDE 50 ML IV (20:48)
[2024-06-30] MEDS: metroNIDAZOLE 500 MG TABLET PO (20:48)
--- NOTE | 2024-06-30 22:09 | PC.NURSE ---
Addendum entered by Alondra Hubbard 06/30/24 22:14: Wrong chart Original Note: Patient arrived to floor via wheelchair from ED at 21:57.
[2024-06-30] MEDS: ACETAMINOPHEN 325MG TAB 650 MG PO (23:35)
--- NOTE | 2024-07-01 00:24 | PC.NURSE ---
Was informed that pt temperature was 102.8. Tylenol was provided. On recheck pt temp had come down to 98.6.
[2024-07-01 00:32] VITALS: TEMP 37
[2024-07-01 04:00] VITALS: BP 117/59; PULSE 93; RESP 16; TEMP 37.2; O2SAT 94; BMI 51.0
[2024-07-01 06:31] LABS: Basophils # 0.1 K/mm3 (0-0.2); Basophils % 0.4 % (0.1-2.0); Eosinophils # 0.1 K/mm3 (0.0-0.4); Eosinophils % 0.4 % (0.1-12.0); Hematocrit 29.8 % (37.0-47.0); Lymphocytes # 2.4 K/mm3 (0.7-4.5); Mean Corpuscular HGB Conc 31.2 g/dL (31.8-35.4); Mean Corpuscular Hemoglobin 25.2 pg (27.0-31.2); Mean Corpuscular Volume 80.8 fl (81-99); Mean Platelet Volume 11.6 fl (7.4-10.4); Monocytes # 1.4 K/mm3 (0.1-1.0); Monocytes % 7.6 % (1.7-9.3); Neutrophils # 13.9 K/mm3 (1.8-7.8); Neutrophils % 76.8 % (37.0-80.0); Platelet Count 454 K/mm3 (142-424); Red Blood Count 3.69 M/mm3 (4.20-5.40); Red Cell Distribution Width 15.7 % (11.5-17.5); White Blood Count 18.2 K/mm3 (4.8-10.8)
[2024-07-01 06:35] LABS: MANUAL DIFFERENTIAL MANUAL DIFFERENTIAL (MANUAL DIFF)
[2024-07-01] MEDS: ONDANSETRON 4MG/2ML VIAL 4 MG IV (06:37)
[2024-07-01 06:51] LABS: Alanine Aminotransferase 23 U/L (12-78); Albumin Level 3.1 g/dl (3.5-5.0); Albumin/Globulin Ratio 0.9 (1.1-1.8); Alkaline Phosphatase 189 U/L (38-126); Anion Gap 11.6 mEq/L (5-15); Aspartate Amino Transferase 33 U/L (14-36); Bilirubin,Total 0.2 mg/dl (0.2-1.3); Blood Urea Nitrogen 4 mg/dl (7-17); Calcium 7.6 mg/dl (8.4-10.2); Carbon Dioxide 23 mmol/L (22.0-30.0); Chloride 104 mmol/L (98-107); Creatinine Clearance Estimated 75 mL/min (50-200); Estimated Glomerular Filt Rate 94 ml/min (>60); GFR (African American) 114 ML/MIN (>60); Globulin 3.3 g/dL (1.3-3.2); Glucose 98 mg/dl (74-100); Magnesium 2.1 mg/dl (1.6-2.3); Potassium 3.6 mmoL/L (3.5-5.1); Sodium 135 mmol/L (136-145); Total Protein,Serum 6.4 g/dl (6.3-8.2)
[2024-07-01 06:57] LABS: Hemoglobin 9.5 g/dL (12.2-16.2)
[2024-07-01 08:00] VITALS: BP 110/71; PULSE 99; RESP 18; TEMP 37.2; O2SAT 92
[2024-07-01 08:13] LABS: Hypochromasia 1+; Lymphocytes % 18 % (10-50); Monocytes % 3 % (2-9); Neutrophils % 79 % (42-76); Platelet Estimate Slight Increase; Total Cells Counted 100
[2024-07-01] MEDS: metroNIDAZOLE 500 MG TABLET PO ×2 (08:50→20:43)
[2024-07-01] MEDS: DOXYCYCLINE HYCL 100 MG TABLET PO ×2 (08:50→20:43)
[2024-07-01] MEDS: POTASSIUM CHLORIDE 20MEQ TAB 40 MEQ PO (08:50)
[2024-07-01 12:00] VITALS: BP 136/70; PULSE 78; RESP 20; TEMP 36.9; O2SAT 96
--- NOTE | 2024-07-01 12:05 | P.PN_ITS ---
Subjective *Date: 07/01/24 *Time: 16:52 Interval history: Kathy is hospital day #2, admitted for sepsis as a pelvic mass that is suspected origin. Patient's had an IUD in for greater than 8 years. Reports regular menses with this. She has not been sexually active in greater than a year. She has not required any pain medication. And she has remained afebrile. She continues to have a white count. Her vitals have remained stable. Exam Data for Last 24 hours Vital signs and Labs for Last 24 Hours: Temp Pulse Resp BP Pulse Ox O2 Del Method 99.0 F 99 H 18 110/71 92 L Room Air 07/01/24 08:00 07/01/24 08:00 07/01/24 08:00 07/01/24 08:00 07/01/24 08:00 07/01/24 11:00 Laboratory Results - last 24 hr 06/30/24 13:05: Urine Color [place], Urine Appearance Sl cloudy, Urine pH 6.0, Ur Specific [place] 1.025, Urine Protein 2+ A, Urine Glucose (UA) Negative, Urine Ketones Trace, Urine Blood 3+ A, Urine Nitrate Negative, Urine Bilirubin 1+ A, Urine Urobilinogen 1.0, Ur Leukocyte Esterase 2+ A, Urine RBC Tntc, Urine WBC 10-20, Ur Squamous Epith Cells Occasional, Urine Bacteria Trace, Urine HCG, Qual Negative 06/30/24 13:35: WBC 20.7 H*, RBC 4.55, Hgb 11.7 L, Hct 36.4 L, MCV 80.0 L, MCH 25.7 L, MCHC 32.1, RDW 15.4, Plt Count 705 H, MPV 10.4, Neut % (Auto) 78.5, Lymph % (Auto) 11.4, [place] % (Auto) 7.9, Eos % (Auto) 0.1, Baso % (Auto) 0.5, Neut # (Auto) 16.2 H, Lymph # (Auto) 2.4, [place] # (Auto) 1.6 H, Eos # (Auto) 0.0, Baso # (Auto) 0.1, Total Counted 100, Neutrophils % (Manual) 79 H, Lymphocytes % (Manual) 15, Monocytes % (Manual) 6, Platelet Estimate Moderate increase, RBC Morphology Normal, Sodium 137, Potassium 3.2 L, Chloride 97 L, Carbon Dioxide 30, Anion Gap 13.2, BUN 4 L, Creatinine 0.80, Estimated Creat Clear 69, Estimated GFR 81, Est GFR ( Amer) 98, Glucose 139 H, Calcium 8.8, Total Bilirubin 0.4, AST 30, ALT 29, Alkaline Phosphatase 188 H, Total Protein 8.5 H, Albumin 4.1, Globulin 4.4 H, Albumin/Globulin Ratio 0.9 L, Lipase 30, Procalcitonin 3.77 H 06/30/24 14:10: Lactate 1.1 07/01/24 05:23: WBC 18.2 H, RBC 3.69 L, Hgb 9.5 L D, Hct 29.8 L, MCV 80.8 L, MCH 25.2 L, MCHC 31.2 L, RDW 15.7, Plt Count 454 H D, MPV 11.6 H, Neut % (Auto) 76.8, Lymph % (Auto) 13.0, [place] % (Auto) 7.6, Eos % (Auto) 0.4, Baso % (Auto) 0.4, Neut # (Auto) 13.9 H, Lymph # (Auto) 2.4, [place] # (Auto) 1.4 H, Eos # (Auto) 0.1, Baso # (Auto) 0.1, Total Counted 100, Neutrophils % (Manual) 79 H, Lymphocytes % (Manual) 18, Monocytes % (Manual) 3, Platelet Estimate Slight increase, RBC Morphology Not Reportable, Hypochromasia 1+, Sodium 135 L, Potassium 3.6, Chloride 104, Carbon Dioxide 23, Anion Gap 11.6, BUN 4 L, Creatinine 0.70, Estimated Creat Clear 75, Estimated GFR 94, Est GFR ( Amer) 114, Glucose 98 D, Calcium 7.6 L, Magnesium 2.1, Total Bilirubin 0.2, AST 33, ALT 23, Alkaline Phosphatase 189 H, Total Protein 6.4, Albumin 3.1 L D, Globulin 3.3 H, Albumin/Globulin Ratio 0.9 L, Procalcitonin 2.60 H I & O for Last 24 hours: Intake & Output 06/28/24 06/29/24 06/30/24 07/01/24 23:59 23:59 23:59 23:59 Intake Total 1200 / 1200 Output Total 0 / 0 Balance 0 / 600 1200 / 1200 Weight 255 lb 1 oz 260 lb Constitutional Constitutional: no acute distress *Routine HEENT Exam Head: Present normocephalic Eye: Present EOMI and PERRL ENT: Present mucous membranes moist *Routine Neck Exam Neck: Present supple; Absent lymphadenopathy *Routine Respiratory Exam Respiratory: Present CTA bilaterally *Routine Cardiovascular Exam Cardiovascular: Present RRR *Routine Abdominal Exam Abdominal: Present soft and normoactive bowel sounds; Absent tenderness *Routine Exam Comments: Normal pelvic exam. Cervix examined and was noted to be without lesions or abnormalities. IUD removed. Speculum exam was very painful for the patient who has otherwise demonstrated a very high tolerance of pain *Routine Extremities Exam Extremities: Absent cyanosis, clubbing or edema *Routine Skin Exam Skin: Present warm; Absent rash *Routine Neurological Exam Neurological: Present alert and oriented X3 Assessment and Plan *Assessment and plan (1) Sepsis without septic shock: Status: Acute Category: Medical Code(s): A41.9 - Sepsis, unspecified organism (2) Abscess of female pelvis: Status: Acute Category: Medical Code(s): N73.9 - Female pelvic inflammatory disease, unspecified (3) Hypokalemia: Status: Acute Category: Medical Code(s): E87.6 - Hypokalemia Plan Patient was originally on a transfer list to . Clinically the patient is stable, appropriate, and improving. She is afebrile and without pain. Unlikely to need transfer. 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 Continue workup and evaluation for pelvic mass Continue trending CBC and CMP Replace electrolytes CA125, CA 19-9, and CEA ordered today IUD removed today Normal pelvic exam Pap smear collected today Continue antibiotics Awaiting blood, urine, and vaginal cultures Continue SCDs Vitals have remained stable with IV fluid resuscitation Tolerating regular diet without nausea and vomiting Has not required any pain medication Consider repeat CT scan Friday or Friday
--- NOTE | 2024-07-01 13:34 | PC.NURSE ---
[facility] called for update on pt. stated that there was still no bed at this time
[2024-07-01 16:00] VITALS: BP 146/66; PULSE 96; RESP 18; TEMP 36.9; O2SAT 97
--- NOTE | 2024-07-01 17:16 | PC.NURSE ---
PT HAS DONE WELL THIS SHIFT. NO C/O PAIN, NAUSEA OR VOMITING. VSS. REMAINS ON WAIT LIST AT . 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 PT ENDORSED DISCOMFORT DURING EXAM BUT IS CURRENTLY RESTING COMFORTABLY
[2024-07-01 19:49] VITALS: BP 114/67; PULSE 91; RESP 16; TEMP 37.1; O2SAT 100
[2024-07-01] MEDS: CEFTRIAXONE 1 GM 1 GM in 0.9 % SODIUM CHLORIDE 50 ML IV (20:43)
[2024-07-01] MEDS: LACTATED RINGERS 1000ML 1,000 ML 50 ML IV (21:20)
[2024-07-02] VITALS: BP 126/56; PULSE 94; RESP 16; TEMP 37.5; O2SAT 96
[2024-07-02 04:00] VITALS: BP 101/52; PULSE 80; RESP 16; TEMP 37.2; O2SAT 95; BMI 51.0
--- NOTE | 2024-07-02 05:44 | PC.NURSE ---
patient is alert an oriented x4, ambulates to and from bathroom independently, no complaints of pain, no complaints of nausea or vomiting, [facility] called for an update and stated that they do not have a bed available at this time, call button is in reach
[2024-07-02 05:56] LABS: Basophils # 0.1 K/mm3 (0-0.2); Basophils % 0.5 % (0.1-2.0); Eosinophils # 0.2 K/mm3 (0.0-0.4); Eosinophils % 1.6 % (0.1-12.0); Hematocrit 29.4 % (37.0-47.0); Hemoglobin 9.4 g/dL (12.2-16.2); Lymphocytes # 2.7 K/mm3 (0.7-4.5); Lymphocytes % 23.7 % (10-50); Mean Corpuscular Hemoglobin 25.8 pg (27.0-31.2); Mean Corpuscular Volume 80.5 fl (81-99); Mean Platelet Volume 10.3 fl (7.4-10.4); Monocytes # 0.8 K/mm3 (0.1-1.0); Monocytes % 6.7 % (1.7-9.3); Neutrophils # 7.3 K/mm3 (1.8-7.8); Neutrophils % 62.6 % (37.0-80.0); Platelet Count 678 K/mm3 (142-424); Red Blood Count 3.65 M/mm3 (4.20-5.40); Red Cell Distribution Width 15.7 % (11.5-17.5); White Blood Count 11.6 K/mm3 (4.8-10.8)
[2024-07-02 06:10] LABS: Alanine Aminotransferase 19 U/L (12-78); Albumin Level 2.9 g/dl (3.5-5.0); Albumin/Globulin Ratio 0.9 (1.1-1.8); Alkaline Phosphatase 131 U/L (38-126); Anion Gap 9.2 mEq/L (5-15); Aspartate Amino Transferase 20 U/L (14-36); Blood Urea Nitrogen 3 mg/dl (7-17); Calcium 8.1 mg/dl (8.4-10.2); Carbon Dioxide 25 mmol/L (22.0-30.0); Chloride 107 mmol/L (98-107); Creatinine Clearance Estimated 75 mL/min (50-200); Estimated Glomerular Filt Rate 94 ml/min (>60); GFR (African American) 114 ML/MIN (>60); Globulin 3.3 g/dL (1.3-3.2); Glucose 102 mg/dl (74-100); Potassium 3.2 mmoL/L (3.5-5.1); Sodium 138 mmol/L (136-145); Total Protein,Serum 6.2 g/dl (6.3-8.2)
[2024-07-02 07:22] LABS: Bilirubin,Total < 0.1 mg/dl (0.2-1.3)
[2024-07-02 08:00] VITALS: BP 125/68; PULSE 87; RESP 18; TEMP 36.9; O2SAT 96
[2024-07-02] MEDS: metroNIDAZOLE 500 MG TABLET PO ×2 (09:17→19:28)
[2024-07-02] MEDS: DOXYCYCLINE HYCL 100 MG TABLET PO ×2 (09:17→19:28)
[2024-07-02] MEDS: POTASSIUM CHLORIDE 20MEQ TAB 40 MEQ PO (09:17)
--- NOTE | 2024-07-02 10:38 | P.PN_ITS ---
Subjective *Date: 07/02/24 *Time: 10:38 Interval history: She seems to be doing much better this morning. She denies any pain. She denies any fever, shortness of breath or chest pain. She denies any calf tenderness. Her white blood cell count has gone down to 11.5 this morning. Her hemoglobin is stable at 9.4. She continues to be slightly hypokalemic at 3.2. She continues with her Rocephin and doxycycline. Medical Exam Vital signs and Labs for Last 24 Hours: Vital Signs Temp Pulse Resp BP Pulse Ox O2 Del Method 07/02/24 09:15 Room Air 07/02/24 08:05 Room Air 07/02/24 08:00 98.5 F 87 18 125/68 96 Room Air 07/02/24 05:00 Room Air 07/02/24 04:00 98.9 F 80 16 101/52 L 95 Room Air 07/02/24 03:00 Room Air 07/02/24 01:00 Room Air 07/02/24 00:00 99.5 F 94 H 16 126/56 L 96 Room Air 07/01/24 23:00 Room Air 07/01/24 21:00 Room Air 07/01/24 20:00 Room Air 07/01/24 19:49 98.7 F 91 H 16 114/67 100 Room Air 07/01/24 18:48 Room Air 07/01/24 17:00 Room Air 07/01/24 16:00 98.4 F 96 H 18 146/66 H 97 Room Air 07/01/24 15:00 Room Air 07/01/24 13:00 Room Air 07/01/24 12:00 98.4 F 78 20 136/70 96 Room Air 07/01/24 11:00 Room Air Intake and Output 07/01/24 07/02/24 07/02/24 19:59 03:59 11:59 Intake Total 780 / 3078 590 / 3078 1708 / 3078 Output Total 0 / 0 0 / 0 0 / 0 Balance 780 / 3078 590 / 3078 1708 / 3078 Intake: Intake, Oral Amount 780 / 1300 240 / 1300 280 / 1300 Intake, Total IV Amount 350 / 1778 1428 / 1778 Ceftriaxone 1 gm 1 gm In 0.9 % 50 / 50 Sodium Chloride 50 ml @ 100 mls /hr IV Q24H [facility] Rx#:[id number] Lactated Ringers 1000ML 1,000 300 / 1728 1428 / 1728 ml @ 50 mls/hr IV .Q20H [facility] Rx# :[id number] Output: Output, Urine Amount 0 / 0 0 / 0 0 / 0 Other: Number of Unmeasured Voids 2 1 Number of Bowel Movements 1 1 Weight 259 lb 15.505 oz Patient Weight 07/02/24 11:59 Weight 259 lb 15.505 oz Laboratory Results - last 24 hr 07/02/24 05:20: WBC 11.6 H D, RBC 3.65 L, Hgb 9.4 L, Hct 29.4 L, MCV 80.5 L, MCH 25.8 L, MCHC 32.0, RDW 15.7, Plt Count 678 H D, MPV 10.3, Neut % (Auto) 62.6, Lymph % (Auto) 23.7, [place] % (Auto) 6.7, Eos % (Auto) 1.6, Baso % (Auto) 0.5, Neut # (Auto) 7.3, Lymph # (Auto) 2.7, [place] # (Auto) 0.8, Eos # (Auto) 0.2, Baso # (Auto) 0.1, Sodium 138, Potassium 3.2 L, Chloride 107, Carbon Dioxide 25, Anion Gap 9.2, BUN 3 L, Creatinine 0.70, Estimated Creat Clear 75, Estimated GFR 94, Est GFR ( Amer) 114, Glucose 102 H, Calcium 8.1 L, Total Bilirubin < 0.1 L, AST 20 D, ALT 19, Alkaline Phosphatase 131 H, Total Protein 6.2 L, Albumin 2.9 L, Globulin 3.3 H, Albumin/Globulin Ratio 0.9 L I & O for Labs for Last 24 Hours: Intake & Output 06/29/24 06/30/24 07/01/24 07/02/24 11:59 11:59 11:59 11:59 Intake Total 1200 / 1200 3078 / 3078 Output Total 0 / 0 0 / 0 Balance 1200 / 1200 3078 / 3078 Weight 260 lb 259 lb 15.505 oz Microbiology Reports for the Last 24 Hours: Microbiology 06/30/24 14:11 Blood Blood Culture - Preliminary NO GROWTH AFTER 24 HOURS 06/30/24 14:10 Blood Blood Culture - Preliminary NO GROWTH AFTER 24 HOURS Head: Present normocephalic Neck: Present normal inspection Respiratory: Present normal respiratory effort; Absent accessory muscle use GI: Present soft; Absent tenderness, guarding, rebound or rigidity Rectal (female): Present deferred (female): Present deferred Extremities: Present normal inspection Assessment and Plan *Assessment and plan (1) Hypokalemia: Status: Acute Category: Medical Code(s): E87.6 - Hypokalemia (2) Abscess of female pelvis: Status: Acute Category: Medical Code(s): N73.9 - Female pelvic inflammatory disease, unspecified (3) Sepsis without septic shock: Status: Acute Category: Medical Code(s): A41.9 - Sepsis, unspecified organism Plan She seems to be improving on a daily basis. She denies any fever or chills, she denies any shortness of breath or chest pain. Her belly pain has now completely resolved. She has had her IUD removed. At this point in time we will continue with her antibiotics and consider sending her home in 24?48 hours. We will see how she is doing tomorrow.
[2024-07-02 11:25] VITALS: BMI 51.0
[2024-07-02 11:53] VITALS: BP 117/63; PULSE 75; RESP 16; TEMP 36.9; O2SAT 95
[2024-07-02] MEDS: LACTATED RINGERS 1000ML 1,000 ML 50 ML IV (12:48)
[2024-07-02 15:46] VITALS: BP 146/79; PULSE 85; RESP 18; TEMP 36.9; O2SAT 97
--- NOTE | 2024-07-02 18:11 | PC.NURSE ---
Pt alert and oriented. VSS. ON room air. Up ad stephanie to BR for voids and BM. Denies pain. Antibiotics and IV fluids administered per orders. Monitor for 24-48 hours with possible discharge home
[2024-07-02] MEDS: CEFTRIAXONE 1 GM 1 GM in 0.9 % SODIUM CHLORIDE 50 ML IV (19:28)
[2024-07-02 20:00] VITALS: BP 125/53; PULSE 96; RESP 16; TEMP 37.1; O2SAT 94
[2024-07-03] VITALS: BP 106/65; PULSE 92; RESP 16; TEMP 37.3; O2SAT 95
[2024-07-03] MEDS: LACTATED RINGERS 1000ML 1,000 ML 50 ML IV (01:33)
[2024-07-03 04:00] VITALS: BP 116/71; PULSE 87; TEMP 37.2; O2SAT 94; BMI 51.0
--- NOTE | 2024-07-03 05:23 | PC.NURSE ---
Pt is alert and oriented x4 and tolerating RA well at this time. Pt has slept well this shift and has tolerated fluid and antibiotic therapy well this shift. Pt has had no acute changes to note and denies pain and needs
[2024-07-03 08:00] VITALS: BP 129/59; PULSE 88; RESP 18; TEMP 37.3; O2SAT 96
[2024-07-03] MEDS: metroNIDAZOLE 500 MG TABLET PO (08:30)
[2024-07-03] MEDS: DOXYCYCLINE HYCL 100 MG TABLET PO (08:30)
[2024-07-03 09:02] LABS: Basophils # 0.1 K/mm3 (0-0.2); Basophils % 0.6 % (0.1-2.0); Eosinophils # 0.2 K/mm3 (0.0-0.4); Eosinophils % 1.8 % (0.1-12.0); Hematocrit 29.7 % (37.0-47.0); Hemoglobin 9.1 g/dL (12.2-16.2); Lymphocytes # 2.9 K/mm3 (0.7-4.5); Lymphocytes % 22.6 % (10-50); Mean Corpuscular HGB Conc 30.6 g/dL (31.8-35.4); Mean Corpuscular Hemoglobin 25.1 pg (27.0-31.2); Mean Platelet Volume 10.3 fl (7.4-10.4); Monocytes # 0.8 K/mm3 (0.1-1.0); Monocytes % 6.1 % (1.7-9.3); Neutrophils # 8.1 K/mm3 (1.8-7.8); Neutrophils % 64.3 % (37.0-80.0); Platelet Count 770 K/mm3 (142-424); Red Blood Count 3.62 M/mm3 (4.20-5.40); Red Cell Distribution Width 16.2 % (11.5-17.5); White Blood Count 12.6 K/mm3 (4.8-10.8)
[2024-07-03 09:09] LABS: Albumin Level 2.9 g/dl (3.5-5.0); Chloride 109 mmol/L (98-107); Potassium 3.8 mmoL/L (3.5-5.1); Sodium 140 mmol/L (136-145)
[2024-07-03 09:12] LABS: Alanine Aminotransferase 17 U/L (12-78); Albumin/Globulin Ratio 0.9 (1.1-1.8); Alkaline Phosphatase 116 U/L (38-126); Anion Gap 9.8 mEq/L (5-15); Aspartate Amino Transferase 23 U/L (14-36); Blood Urea Nitrogen 2 mg/dl (7-17); Calcium 8.3 mg/dl (8.4-10.2); Carbon Dioxide 25 mmol/L (22.0-30.0); Creatinine Clearance Estimated 75 mL/min (50-200); Estimated Glomerular Filt Rate 94 ml/min (>60); GFR (African American) 114 ML/MIN (>60); Globulin 3.2 g/dL (1.3-3.2); Glucose 95 mg/dl (74-100); Total Protein,Serum 6.1 g/dl (6.3-8.2)
[2024-07-03 09:14] LABS: CA 19-9 7 U/mL (0-35); CEA 0.8 ng/mL (0.0-4.7); Cancer Antigen (CA) 125 42.3 U/mL (0.0-38.1)
[2024-07-03 09:17] LABS: Bilirubin,Total < 0.1 mg/dl (0.2-1.3)
--- NOTE | 2024-07-03 09:27 | EXP.DC.SUM ---
General Admission date:: 06/30/24 Discharge date: 07/03/24 HPI HPI HPI: Ms Kathy Chandler is a 39 yo [id number] who presented to [facility] ED with complaint of abdominal pain, nausea, vomiting and diarrhea. She states about 1 week ago she started to have lower abdominal pain. She didn't think much of it because she was due to start her period. She has an IUD in place that was inserted about 9 years ago. She has always had regular, monthly periods with IUD. She started her period 06/25/24 but her abdominal pain did not improve. Pain is more tolerable during the day and gets worse at night. Pain has progressively increased over the past several days. She reports associated nausea, vomiting and diarrhea. She states she normally has daily BM and sometimes twice daily. However, when the pain started she became constipated. The constipation then turned to diarrhea. She reports about two BMs but her stool is liquid. She admits to chills at night. Her period stopped last night but returned again today more brown in color. She admits she hasn't seen a calenderer since her last baby 9 years ago. She hasn't had a pap smear since then. She admits she has not been sexually active in about 1 year. She denies past medical history. She quit smoking 3 months ago. History of x 3. Hospital Course Hospital Course Hospital Course: She was admitted for pain control as well as IV antibiotics. She had a CT scan as well as transvaginal ultrasound. The CT scan showed: Right adnexal mass measuring up to 7.7 cm with surrounding inflammation/infiltration. Differential diagnosis includes neoplasm, tubo-ovarian abscess or torsion. Recommend [employer] consultation. Mild retroperitoneal and right inguinal adenopathy which may be reactive or neoplastic. A transvaginal ultrasound was performed and showed: 1. Anteverted uterus, bulky in size. The endometrium appears normal and measures 11.4 mm. 2. There is an IUD out of position in the upper cervix. 3. The left ovary is not visualized. 4. The right ovary is seen and appears normal. Adjacent to the right ovary there is a complex mass measuring up to 7.7 cm in size. Likely tubo-ovarian abscess but cannot rule out a neoplastic process. There is a 2nd smaller complex mass in the cul-de-sac adjacent to the primary mass that measures 2.7 cm in size. 5. Doppler flow is seen to the right ovary. 6. There is a moderate amount of clear fluid in the cul-de-sac likely inflammatory. She was started on IV Rocephin 1 g daily and doxycycline 100 mg p.o. twice daily. She began to feel better within 24 hours and has had no further episodes of fever or pain. She did have 1 episode of fever of 102.8 on the evening of admission. Since then her temperature has been 98-99 ?F. Her initial WBC was 20.7. Her white blood cell count has come down to 12.6 and she is now anemic with a hemoglobin of 9.1 that we feel is likely related to hemodilution. Her platelet counts have remained elevated. She was slightly hypokalemic and remains mildly hypokalemic. More importantly she has no further episodes of pain. She is feeling quite well. She looks well. Her IUD was removed on the day after admission. Blood cultures were done and both were negative. Urinalysis was done but the cultures were not performed. Lab we will start the cultures on the day of discharge.. Vaginal swab showed some white blood cells and a few gram-positive cocci. Since she is feeling so well we will plan to send her home today on oral antibiotics. She will take Keflex 500 mg p.o. 3 times daily as well as doxycycline 100 mg p.o. twice daily for the next 2 weeks. We would like her to follow-up this week in the office and we will get another CBC this week. We are awaiting a [place] test. Condition on discharge is stable and improved. Exam Data for Last 24 hours Vital signs and Labs for Last 24 Hours: Temp Pulse Resp BP Pulse Ox O2 Del Method 99.1 F 88 18 129/59 L 96 Room Air 07/03/24 08:00 07/03/24 08:00 07/03/24 08:00 07/03/24 08:00 07/03/24 08:00 07/03/24 08:00 Laboratory Results - last 24 hr 07/01/24 17:54: Carcinoembryonic Ag 0.8, CA 19-9 Antigen 7, CA 125 Antigen 42.3 H 07/03/24 07:08: WBC 12.6 H, RBC 3.62 L, Hgb 9.1 L, Hct 29.7 L, MCV 82.0, MCH 25.1 L, MCHC 30.6 L, RDW 16.2, Plt Count 770 H, MPV 10.3, Neut % (Auto) 64.3, Lymph % (Auto) 22.6, [place] % (Auto) 6.1, Eos % (Auto) 1.8, Baso % (Auto) 0.6, Neut # (Auto) 8.1 H, Lymph # (Auto) 2.9, [place] # (Auto) 0.8, Eos # (Auto) 0.2, Baso # (Auto) 0.1, Sodium 140, Potassium 3.8, Chloride 109 H, Carbon Dioxide 25, Anion Gap 9.8, BUN 2 L D, Creatinine 0.70, Estimated Creat Clear 75, Estimated GFR 94, Est GFR ( Amer) 114, Glucose 95, Calcium 8.3 L, Total Bilirubin < 0.1 L, AST 23, ALT 17, Alkaline Phosphatase 116, Total Protein 6.1 L, Albumin 2.9 L, Globulin 3.2, Albumin/Globulin Ratio 0.9 L I & O for Last 24 hours: Intake & Output 06/30/24 07/01/24 07/02/24 07/03/24 11:59 11:59 11:59 11:59 Intake Total 1200 / 1200 3078 / 3078 785 / 785 Output Total 0 / 0 0 / 0 0 / 0 Balance 1200 / 1200 3078 / 3078 785 / 785 Weight 260 lb 259 lb 15.505 oz 259 lb 15.505 oz Microbiology Reports for the Last 24 Hours: Microbiology 06/30/24 09:32 Vaginal Gram Stain - Final 06/30/24 09:32 Vaginal Wound Culture - Preliminary 06/30/24 14:11 Blood Blood Culture - Preliminary NO GROWTH AFTER 48 HOURS 06/30/24 14:10 Blood Blood Culture - Preliminary NO GROWTH AFTER 48 HOURS Constitutional Constitutional: no acute distress *Routine HEENT Exam Head: Present normocephalic *Routine Neck Exam Neck: Present full ROM *Routine Respiratory Exam Respiratory: Present normal respiratory effort; Absent accessory muscle use *Routine Abdominal Exam Abdominal: Present soft; Absent tenderness, distended, rebound or guarding *Routine Rectal Exam Patient deferred: visual exam and digital exam *Routine Exam Patient deferred: external exam, groin exam and perineal exam Results Data Completed and Pending Labs on day of discharge: Labs from last 24 hours 07/03/24 07/01/24 07:08 17:54 WBC 12.6 H RBC 3.62 L Hgb 9.1 L Hct 29.7 L MCV 82.0 MCH 25.1 L MCHC 30.6 L RDW 16.2 Plt Count 770 H MPV 10.3 Neut % (Auto) 64.3 Lymph % (Auto) 22.6 [place] % (Auto) 6.1 Eos % (Auto) 1.8 Baso % (Auto) 0.6 Neut # (Auto) 8.1 H Lymph # (Auto) 2.9 [place] # (Auto) 0.8 Eos # (Auto) 0.2 Baso # (Auto) 0.1 Sodium 140 Potassium 3.8 Chloride 109 H Carbon Dioxide 25 Anion Gap 9.8 BUN 2 L D Creatinine 0.70 Estimated Creat Clear 75 Estimated GFR 94 Est GFR ( Amer) 114 Glucose 95 Calcium 8.3 L Total Bilirubin < 0.1 L AST 23 ALT 17 Alkaline Phosphatase 116 Total Protein 6.1 L Albumin 2.9 L Globulin 3.2 Albumin/Globulin Ratio 0.9 L Carcinoembryonic Ag 0.8 CA 19-9 Antigen 7 CA 125 Antigen 42.3 H Preliminary micro results at discharge 06/30/24 09:32 Wound Culture - Preliminary Vaginal 06/30/24 14:11 Blood Culture - Preliminary Blood NO GROWTH AFTER 48 HOURS 06/30/24 14:10 Blood Culture - Preliminary Blood NO GROWTH AFTER 48 HOURS DS: Diagnosis Discharge Diagnosis (1) Hypokalemia: Status: Acute Code(s): E87.6 - Hypokalemia (2) Abscess of female pelvis: Status: Acute Code(s): N73.9 - Female pelvic inflammatory disease, unspecified (3) Sepsis without septic shock: Status: Acute Code(s): A41.9 - Sepsis, unspecified organism Meds Home Medications and Allergies Home Medications ?Medication ?Instructions ?Recorded ?Confirmed ?Type cephalexin 500 mg capsule 500 mg PO TID 14 days #42 caps 07/03/24 Rx doxycycline hyclate 100 mg tablet 100 mg PO BID #28 tabs 07/03/24 Rx New Prescriptions to Start Prescriptions: cephalexin Ruben Carrasco doxycycline hyclate Ruben Carrasco Allergies Allergy/AdvReac Type Severity Reaction Status Date / Time No Known Allergies Allergy Verified 03/15/24 14:46 Discharge Plan Disposition Patient Disposition: Home, Self-Care Condition: Good Discharge Order Discharge Orders: Discharge Order (Routine); Ordered 07/03/24 Ordered By: Ruben Carrasco Follow up Plan Follow up with: Darnell Hanson [Primary Care Provider] - 07/09/24 9:45 am Candida Johnston DO [Staff Physician] - Enter time for follow up (please call office Friday for follow up appointment.) Prescriptions/Medication Reconciliation: New doxycycline hyclate 100 mg tablet 100 mg PO BID Qty: 28 0RF cephalexin 500 mg capsule 500 mg PO TID 14 Days Qty: 42 0RF Problem Reconciliation Problems Reviewed?: Yes Patient Discharge Instructions ACTIVITY: Ambulate as tolerated DIET: continue same diet Patient Instructions: Sepsis, DI for Pelvic Inflammatory Disease (PID), DI for Hypokalemia, DI for Sepsis -- Adult Print Language: Persian Providers Primary Care Provider: Darnell Hanson Admit Provider: Candida Johnston Attending Provider: Candida Johnston
--- NOTE | 2024-07-05 10:35 | SW/DCPLANNER ---
Spoke with patient on the phone. Patient stated that she is okay. Patient stated that she is aware of her upcoming appointments. Patient stated that she was able to get her new medicine from clinic pharmacy. Patient stated that she has no concerns or questions at this time. Manny Gaytan
== END 2024-07-03 10:57 | disposition home or self-care (01) | DRG 759 ==
LOC: ER 17:53 → 2ND 18:01
PROVIDERS: Obstetrics & Gynecology; Physician Assistant; Admitting Provider Obstetrics & Gynecology; Emergency Provider Emergency Medicine; PCP Pediatrics; Visit Provider Obstetrics & Gynecology
DX: N73.9 Female pelvic inflammatory disease, unspecified (principal); Y82.8 Other medical devices associated with adverse incidents; E87.6 Hypokalemia; T83.32XA Displacement of intrauterine contraceptive device, initial encounter; R19.09 Other intra-abdominal and pelvic swelling, mass and lump; Z79.899 Other long term (current) drug therapy
CPT/HCPCS: 36415; 74177; 76830; 80053; 81001; 81025; 82378; 83605; 83690; 83735; 84145; 85007; 85025; 86301; 86316; 87040; 87070; 87077; 87086; 87186; 87205; J0131; J0696; J1171; J1885; J2405; J2543; J7030; J7120; Q9967

== ENCOUNTER 2024-07-29 07:53 | Outpatient (CLI) | payer MEDICAID, SELFPAY ==
--- NOTE | 2024-07-29 08:00 | CT_ITS ---
FINAL REPORT TECHNIQUE: Axial CT of the abdomen and pelvis, without and with IV contrast. This study was performed with techniques to keep radiation doses as low as reasonably achievable, (ALARA). Individualized dose reduction techniques using automated exposure control or adjustment of mA and/or kV according to the patient''s size were employed. CLINICAL HISTORY: f/u CT; Right adnexal mass & right-sided adenopathy COMPARISON: 06/30/2024 FINDINGS: Abdomen: Lung bases are clear. There is fatty infiltration of the liver. The remaining solid organs are negative. The gallbladder is negative. No bowel obstruction or fluid collection is seen. Pelvis: The appendix is normal. The previously noted mass in the right adnexa with surrounding inflammation has since resolved. Tiny cysts are noted in the right ovary. Largest measures up to 8 mm and is compatible with benign etiology. There is a 35 mm cyst in the left ovary which is new and compatible with benign functional cyst. There has been interval removal of the IUD. Fluid in the uterine cavity is noted measuring up to 7 mm in thickness which could be related to patient's menses. IMPRESSION: Resolution of right ovarian enlargement and surrounding inflammation since previous exam. Interval removal of IUD. Interval development of benign 3.5 cm functional cyst left ovary. Reviewed, Interpreted and Dictated by Alon Okeefe MD Transcribed by Makenna Madrigal Authenticated and . [facility]
[2024-07-29] MEDS: IOPAMIDOL-370 (76%);100ML BOTTLE 75 ML IV (08:59)
[2024-07-29] MEDS: SODIUM CHLORIDE 0.9% 10ML SYR (RAD ONLY) 10 ML IV (08:59)
== END 2024-07-29 23:59 | disposition home or self-care (01) ==
LOC: RAD 07:54
PROVIDERS: PCP Nurse Practitioner; Visit Provider Obstetrics & Gynecology
DX: N73.9 Female pelvic inflammatory disease, unspecified (principal)
CPT/HCPCS: 74178; Q9967

== ENCOUNTER 2024-09-23 10:57 | Outpatient (CLI) | payer MEDICAID, SELFPAY ==
--- NOTE | 2024-09-23 11:00 | US_ITS ---
PROCEDURE: US TRANSVAGINAL CLINICAL INDICATION: Needs f/u US 09/23/24 for ovarian cyst COMPARISON: CT CT ABDOMEN PELVIS W CON from 06/30/2024 US US TRANSVAGINAL from 06/30/[address] ABDOMEN PELVIS WO/W CON from 07/29/2024 FINDINGS: Transvaginal and transabdominal sonographic images of the pelvis were obtained. UTERUS: 8.2cm x 5.1cmx 4.9 cm with a combined endometrial thickness of 6.7mm. There are two small nabothian cysts in the cervix. A scar is seen. LEFT OVARY: 2.7 cmx1.7 cmx1.6cm with a volume of 3.9ml. There are several small peripheral follicles in the left ovary. The left ovary could only be seen transabdominally and could not be seen transvaginally. RIGHT OVARY: 2.6 cm x 1.9 cmx1.8 cm with a volume of 4.7ml. The previously described 7.7 cm complex mass in the right adnexa has completely resolved. There are several small peripheral follicles. Both ovaries are seen and appear normal. Doppler flow to both ovaries are seen. There is no fluid in the cul-de-sac. IMPRESSION: 1. Anteverted uterus normal in shape and size. The endometrium measures 6.7 mm and appears normal. 2. Both ovaries are seen and appear normal. The previously described 7.7 cm complex mass in the right adnexa has now completely resolved. There are several small peripheral follicles in the left ovary. The 3.5 cm functional cyst seen on her last CT scan is not apparent today. 3. No fluid in the cul-de-sac. Dictated by: Ruben Carrasco MD 09/23/2024 19:58 Ruben Carrasco MD in OV 09/23/2024 19:58
== END 2024-09-23 23:59 | disposition home or self-care (01) ==
LOC: RAD 10:57
PROVIDERS: PCP Nurse Practitioner; Visit Provider Obstetrics & Gynecology
DX: N83.02 Follicular cyst of left ovary (principal)
CPT/HCPCS: 76830